=== PATIENT | male | born 1945 | race Caucasian/White ===

== ENCOUNTER 2021-06-02 13:00 | Emergency (ER) | payer MEDICARE, OTHER ==
[2021-06-02] MEDS: Sodium Chloride 0.9% 1,000 ML IV SCH (13:30)
[2021-06-02] MEDS: Ondansetron 4 MG/2 ML SDV IVPUSH ONE (13:30)
[2021-06-02 13:55] LABS: CHLORIDE,CL 102 mmol/L (98-107); SODIUM,NA 135 mmol/L (136-145)
[2021-06-02] MEDS: Potassium Chloride Riders 20 MEQ in Premix Bag 1 BAG IV ONE (14:12)
[2021-06-02] MEDS: Acetaminophen 325 MG Tab PO ONE (14:12)
== END 2021-06-02 16:33 | disposition home or self-care (01) ==
LOC: VM.ED 13:00
DX: K52.9 Noninfective gastroenteritis and colitis, unspecified (principal); E78.00 Pure hypercholesterolemia, unspecified; M10.9 Gout, unspecified; E03.9 Hypothyroidism, unspecified; Z79.82 Long term (current) use of aspirin; Z79.899 Other long term (current) drug therapy
CPT/HCPCS: 36415; 80053; 82150; 83690; 83735; 85025; 86140; 96365; 96366; 96375; 99284; 99284-25; A9270-GY; J2405; J3480; J7030

== ENCOUNTER 2021-08-22 14:17 | Emergency (ER) | payer MEDICARE, OTHER ==
[2021-08-22] MEDS ORDERED: Take Home: traMADol 50 MG, 4 Tab Pack PO ONE (14:38)
== END 2021-08-22 14:48 | disposition home or self-care (01) ==
LOC: VM.ED 14:17
DX: K02.9 Dental caries, unspecified (principal); M10.9 Gout, unspecified; E78.00 Pure hypercholesterolemia, unspecified; E03.9 Hypothyroidism, unspecified; Z79.899 Other long term (current) drug therapy; Z79.82 Long term (current) use of aspirin
CPT/HCPCS: 99282; 99283; A9270-GY